=== PATIENT | female | born 1925 | race Caucasian/White ===

== ENCOUNTER 2017-03-22 13:34 | Inpatient (IN) | payer MEDICARE ==
[2017-03-22] MEDS ORDERED: Sodium Chloride 0.9% 10 ML Syringe FLUSH PRN (14:50)
[2017-03-22] MEDS ORDERED: Albuterol/Ipratropium 3.0-0.5 MG/3 ML Neb Soln NEB PRN (14:50)
[2017-03-22] MEDS ORDERED: HYDROmorphone 1 MG/ML Syringe IVPUSH PRN (14:50)
[2017-03-22] MEDS ORDERED: Ondansetron 4 MG/2 ML SDV IV PRN (14:50)
[2017-03-22] MEDS ORDERED: Take Home: Albuterol 6.7 GM Inhaler, 1 Inhaler Pack INH PRN (15:02)
[2017-03-22] MEDS ORDERED: Ondansetron 4 MG Tab.DIS PO PRN (15:02)
[2017-03-22] MEDS ORDERED: Bisacodyl 10 MG Supp RECTAL PRN ×3 (15:02→16:00)
[2017-03-22] MEDS ORDERED: FLUOCINONIDE TOP PRN ×2 (15:02)
[2017-03-22] MEDS ORDERED: Dextran 70/Hypromellose/PF Ophth Soln 0.9 ML UD EYEBOTH PRN (15:02)
--- NOTE | 2017-03-22 15:14 | PCM.HP ---
"H&P History of Present Illness - General Date of Service: 03/22/17 Admit Problem/Dx: Admission Diagnosis/Problem Admission Diagnosis/Problem Pneumonia Source of Information: Patient, Jail Records - History of Present Illness Initial Comments - Free Text/Narative: HPI Comments:~FEver, dyspnea, cough - past 24 hours at [facility]. ~No chest pain. ~Probably exposed to some flu. ~Receiv flu shot. ~Receive Tamiflu prophylaxis 1 or two doses. Fever~~ Associated symptoms include coughing. Pertinent negatives include no chest pain~ or vomiting. Other~ Associated symptoms include coughing~and a fever. Pertinent negatives include no chest pain~or vomiting. Pallor~ Associated symptoms include coughing~and a fever. Pertinent negatives include no chest pain~or vomiting. Medications MedicationsPriortoVisit Outpatient Medications Prior to Visit Medication Sig Dispense Refill traMADol (ULTRAM) 50 mg tablet Take 1 tablet (50 mg) by mouth 2 times a day TAKE 1 TABLET BY MOUTH 3 TIMES DAILY 60 tablet 5 furosemide (LASIX) 20 mg tablet Take 2 tablets (40 mg) by mouth 2 times a day 120 tablet 11 ketoconazole (NIZORAL) 2% shampoo APPLY TO DAMP SCALP, LEAVE ON LONG POSSIBLE BEFORE SHAMPOOING OUT, USE DAILY 120 mL 11 mirtazapine (REMERON) 15 mg tablet Take 15 mg by mouth 1 time per day omega-3 fatty acids (FISH OIL) 1000 mg capsule Take 1,000 mg by mouth 1 time per day Sennosides-Docusate Sodium (SENNA PLUS PO) Take by mouth 2 times a day bisacodyl (DULCOLAX) 10 mg suppository 10 mg calcium ascorbate 500 MG TABS 500 mg predniSONE 5 mg tablet TAKE 1 TABLET BY MOUTH ONE TIME A DAY WITH 1MG TABLET 14 tablet 11 warfarin (COUMADIN) 5 mg tablet [facility] Anticoagulation Pt:Take as directed. (Insurance Purposes: 2.5-5 mg daily dose range) Call [phone] if questions. 90 tablet 3 potassium chloride (K-OMAR) 20 MEQ packet Take 1 packet (20 mEq total) by mouth 3 times a day Dissolve in 4 to 8 ounces of water or juice. (Patient taking differently: Take 20 mEq by mouth 1 time per day Dissolve in 4 to 8 ounces of water or juice. ) 90 packet 3 Phytonadione, vitamin K, 100 MCG TABS tablet Take 1 tablet (100 micrograms) by mouth once daily while on warfarin to stabilize labile INRs and dietary vitamin K consumption. 100 tablet 3 aspirin 81 mg chewable tablet Take 1 tablet (81 mg total) by mouth 1 time per day 30 tablet 1 atorvaSTATin (LIPITOR) 40 mg tablet Take 1 tablet (40 mg total) by mouth 1 time per day 30 tablet 1 acetaminophen (TYLENOL) 500 mg tablet Take 1 tablet (500 mg total) by mouth Every 4 hours as needed for mild pain or fever > (indicate temp) (Temp >100.0) 30 tablet 1 albuterol HFA (PROAIR HFA) 108 (90 BASE) MCG/ACT inhaler Inhale 1 puff orally every 4 to 6 hours as needed for shortness of breath Shake well before using. 1 Inhaler 0 venlafaxine (EFFEXOR) 75 mg tablet Take 1 tablet (75 mg total) by mouth 2 times a day 30 tablet 1 ondansetron (ZOFRAN) 4 mg tablet Take 1 tablet (4 mg total) by mouth every 6 hours as needed for nausea (if nausea does not improve in one hour may take a second tablet) 60 tablet 1 carVEDilol (COREG) 6.25 mg tablet Take 1 tablet (6.25 mg total) by mouth 2 times a day with meals 60 tablet 1 fluocinonide (LIDEX) 0.05 % SOLN Apply once or twice daily to affected scalp as needed for itching and rash 60 mL 11 pyrithione zinc (SELSUN BLUE DRY SCALP) 1 % SHAM Shampoo hair with Selsun Blue 2 times a week for 2 week, then once weekly thereafter. 118 mL 0 melatonin 3 mg tablet Take 1 tablet (3 mg total) by mouth every night at bedtime 30 tablet 1 multivitamin/lutein (PROSIGHT;OCUVITE-LUTEIN) capsule Take 1 capsule by mouth 1 time per day 30 capsule 1 brimonidine 0.2 % SOLN Place 1 drop into both eyes 2 times a day 10 mL 11 polyethyl glycol-propyl glycol (SYSTANE) 0.4-0.3 % SOLN Place 1 drop into both eyes Every 4 hours as needed for dry eyes 10 mL 0 omeprazole (PRILOSEC) 20 mg capsule Take 1 capsule (20 mg total) by mouth 1 time a day in the morning 30 capsule 1 vitamin C, ascorbic acid, 500 MG tablet Take 1 tablet (500 mg total) by mouth 2 times a day 60 tablet 1 predniSONE 20 mg tablet 2 today then 1 Once Daily x 7d 9 tablet 0 No facility-administered medications prior to visit. Allergies Allergies Allergen Reactions Hayfever [Hay Fever] Wheezing/Bronchospasm (High) Ceftin [Cefuroxime] Unknown/Not Verified Ciprofloxacin Unknown/Not Verified Codeine Unknown/Not Verified Shellfish-Derived Products Unknown/Not Verified Problem List Patient Active Problem List Diagnosis Pneumonia of right middle lobe due to infectious organism admit 02/01 has aspiration on swallow eval Decubitus ulcer of coccyx Inflammatory arthritis spring after CVA E. coli UTI After stroke 07/02 tx with Macrobid, e.coli again in 09/01 resistant to bactrim later got cipro Long-term (current) use of anticoagulants Acute right arterial ischemic stroke, MCA (middle cerebral artery) S/p thrombectomy 06/29/15 with significant residual left sided paralysis especially in her arm Seborrheic dermatitis of scalp Derm 11/30 had milia then also on Lidex Glaucoma Pseudophakos Presbyopia Bradycardia On carvedelol with amitriptylene., Hypertension, essential, benign Hypercholesterolemia Chronic atrial fibrillation Onset about 2009 on coumadin until 2012, when having ischemic colitis and some cognitive decline. No cardioversion. ~Remote hx of TIA, CVA in 07/02 restarted coumadin Cognitive dysfunction 07/14/13 MMSE 26/30. Has depression also. ~She was 21/30 when admitted for a concussion her CPT was 3.1 Depression Was on amitriptylene in [place], In 2013 taper off in and start zoloft. Also has dementia. ~Trial of effexor in 11/30 and plan to taper down on Zoloft also.. ~Effexor increased in 05/04 to 75 mg twice daily Osteoporosis, senile Was on fosamax , temporarily stopped in 2012 and later held in 11/30 due to muscle aches Ischemic colitis Colonoscopy Jan 2012 in [place]. Breast cancer Surgery in 1998 Right. And had elective mastectomy on other side. CHF (congestive heart failure) Apr 2012, ischemic cardiomyopathy ~25%, on coreg. Jun 2015 echo shows 55% EF, mild aortic regurg, moderate mitral valve regurg. Admit 02/01 with aspiration pneumonia also GERD (gastroesophageal reflux disease) EGD Jan 2012.Prilosec Degenerative joint disease of knee Diverticulosis TIA (transient ischemic attack) Colon polyp Colon polyps in past, [place] , 2001,2002,2006,,07/19/2011 Medical/Surgical/Family/Social PastMedicalHistory Past Medical History: Diagnosis Date Atrial fibrillation Onset about 2009 on coumadin until 2012, when having ischemic colitis and some cognitive decline. No cardioversion. Bradycardia 07/14/2013 On carvedelol with amitriptylene., ~ Breast cancer Surgery in 1998 Right. And had elective mastectomy on other side. CHF (congestive heart failure) Apr 2012, ischemic cardiomyopathy ~25%, on coreg Cognitive dysfunction Cognitive dysfunction 07/14/13 MMSE . Has depression also. Colon polyp 07/19/2011 Colon polyps in past, [place] , 2001,2002,2006,,07/19/2011 Degenerative joint disease of knee Depression Was on amitriptylene in [place], In 2013 taper off in and start zoloft. Also had dementia. Diverticulosis GERD (gastroesophageal reflux disease) EGD Jan 2012.Prilosec Hypercholesterolemia Hypertension, essential, benign Ischemic colitis Colonoscopy Jan 2012 in [place]. Osteoporosis, senile Was on fosamax , temporarily stopped in 2012. ~ Psychotherapy and other treatment for mental disorder follow-up examination Skin lesion of scalp 07/14/2013 TIA (transient ischemic attack) PastSurgicalHistory Past Surgical History: Procedure Laterality Date APPENDECTOMY BIOPSY LUNG BREAST SURGERY Bilateral 1998 one side cancer, other side prophylactic CATARACT EXTRACTION Bilateral TONSILLECTOMY & ADENOIDECTOMY < AGE 14 FamilyHistory Family History Problem Relation Age of Onset Heart Mother Cataracts Mother Heart Disease Mother Cancer (not otherwise listed) Father leukemia Heart Brother Heart Disease Brother Heart Brother [place] Heart Disease Brother Cancer (not otherwise listed) Brother Negative Brother Blindness Neg Hx Glaucoma Neg Hx Macular Degeneration Neg Hx Retinal Detachment Neg Hx SocialHistory Social History Social History Marital status: Spouse name: N/A Number of children: N/A Years of education: N/A Occupational History retired Social History Main Topics Smoking status: Former Smoker Smokeless tobacco: Never Used Alcohol use No Drug use: No Sexual activity: Not on file Other Topics Concern Not on file Social History Narrative From [place], 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 Son is retired ENT physician from [place], move to [place] in 2013. Daughter, Katalina, in primary caregiver. 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 Tob rare, stopped at 42 y/o. EtOH occasionally. ROS Review of Systems Constitutional: Positive for fever. Respiratory: Positive for cough~and shortness of breath. ~ Cardiovascular: Negative for chest pain. Gastrointestinal: Negative for vomiting. Physical / Results BP 106/62 ~Pulse 82 ~Temp 99.5 F (37.5 C) (Tympanic) ~SpO2 87%|| Physical Exam~ Constitutional: She appears well-developed~and well-nourished. No distress. HENT: Mouth/Throat: Oropharynx is clear and moist. Cardiovascular: Normal rate, regular rhythm~and normal heart sounds. ~ Pulmonary/Chest: Effort normal. She has wheezes. She has rales. Some mild B wheeze, rhonchi, rale~ Abdominal: Soft. Musculoskeletal: She exhibits edema. She exhibits no tenderness. Skin: She is not diaphoretic. Assessment / Plan Problem List Items Addressed This Visit~ None Visit Diagnoses~ SOB (shortness of breath)~~~~- ~Primary Relevant Medications albuterol-ipratropium (DUO-NEB) 2.5-0.5 mg/3 mL inhalation solution 3 mL Other Relevant Orders COMPLETE BLOOD COUNT WITH DIFFERENTIAL COMPREHENSIVE METABOLIC PANEL C-REACTIVE PROTEIN (INFLAMMATION) INFLUENZA A AND B NUCLEIC ACID DETECTION XRAY CHEST PA AND LATERAL Plan: Fever, cough, hypoxia CXR looks mostly unchanged, hard to read expiratory film in wheelchair pt, PNA would still be most likely dx Admit for O2, nebs, rocephin + azith, double prednisone x at least 3d Will do tamiflu more in the prophylactic qd~dose, I doubt one or two doses would make her PCR falsely neg today Appears euvolemic Hold on IVF for now given CHF hx Already on warfarn for afib which will cover DVT prophylaxis INR in AM Last ESR 82 Localized arthritis often PMR equivalent at this age DNR per DC chart Outpatient Medications Prior to Visit Medication Sig Dispense Refill traMADol (ULTRAM) 50 mg tablet Take 1 tablet (50 mg) by mouth 2 times a day TAKE 1 TABLET BY MOUTH 3 TIMES DAILY 60 tablet 5 furosemide (LASIX) 20 mg tablet Take 2 tablets (40 mg) by mouth 2 times a day 120 tablet 11 ketocnazole (NIZORAL) 2% shampoo APPLY TO DAMP SCALP, LEAVE ON LONG POSSIBLE BEFORE SHAMPOOING OUT, USE DAILY 120 mL 11 mirtazapine (REMERON) 15 mg tablet Take 15 mg by mouth 1 time per day omega-3 fatty acids (FISH OIL) 1000 mg capsule Take 1,000 mg by mouth 1 time per day Sennosides-Docusate Sodium (SENNA PLUS PO) Take by mouth 2 times a day bisacodyl (DULCOLAX) 10 mg suppository 10 mg calcium ascorbate 500 MG TABS 500 mg predniSONE 5 mg tablet TAKE 1 TABLET BY MOUTH ONE TIME A DAY WITH 1MG TABLET 14 tablet 11 warfarin (COUMADIN) 5 mg tablet [facility] Anticoagulation Pt:Take as directed. (Insurance Purposes: 2.5-5 mg daily dose range) Call [phone] if questions. 90 tablet 3 potassium chloride (K-OMAR) 20 MEQ packet Take 1 packet (20 mEq total) by mouth 3 times a day Dissolve in 4 to 8 ounces of water or juice. (Patient taking differently: Take 20 mEq by mouth 1 time per day Dissolve in 4 to 8 ounces of water or juice. ) 90 packet 3 Phytonadione, vitamin K, 100 MCG TABS tablet Take 1 tablet (100 micrograms) by mouth once daily while on warfarin to stabilize labile INRs and dietary vitamin K consumption. 100 tablet 3 aspirin 81 mg chewable tablet Take 1 tablet (81 mg total) by mouth 1 time per day 30 tablet 1 atorvaSTATin (LIPITOR) 40 mg tablet Take 1 tablet (40 mg total) by mouth 1 time per day 30 tablet 1 acetaminophen (TYLENOL) 500 mg tablet Take 1 tablet (500 mg total) by mouth Every 4 hours as needed for mild pain or fever > (indicate temp) (Temp >100.0) 30 tablet 1 albuterol HFA (PROAIR HFA) 108 (90 BASE) MCG/ACT inhaler Inhale 1 puff orally every 4 to 6 hours as needed for shortness of breath Shake well before using. 1 Inhaler 0 venlafaxine (EFFEXOR) 75 mg tablet Take 1 tablet (75 mg total) by mouth 2 times a day 30 tablet 1 ondansetron (ZOFRAN) 4 mg tablet Take 1 tablet (4 mg total) by mouth every 6 hours as needed for nausea (if nausea does not improve in one hour may take a second tablet) 60 tablet 1 carVEDilol (COREG) 6.25 mg tablet Take 1 tablet (6.25 mg total) by mouth 2 times a day with meals 60 tablet 1 fluocinonide (LIDEX) 0.05 % SOLN Apply once or twice daily to affected scalp as needed for itching and rash 60 mL 11 pyrithione zinc (SELSUN BLUE DRY SCALP) 1 % SHAM Shampoo hair with Selsun Blue 2 times a week for 2 week, then once weekly thereafter. 118 mL 0 melatonin 3 mg tablet Take 1 tablet (3 mg total) by mouth every night at bedtime 30 tablet 1 multivitamin/lutein (PROSIGHT;OCUVITE-LUTEIN) capsule Take 1 capsule by mouth 1 time per day 30 capsule 1 brimonidine 0.2 % SOLN Place 1 drop into both eyes 2 times a day 10 mL 11 polyethyl glycol-propyl glycol (SYSTANE) 0.4-0.3 % SOLN Place 1 drop into both eyes Every 4 hours as needed for dry eyes 10 mL 0 omeprazole (PRILOSEC) 20 mg capsule Take 1 capsule (20 mg total) by mouth 1 time a day in the morning 30 capsule 1 vitamin C, ascorbic acid, 500 MG tablet Take 1 tablet (500 mg total) by mouth 2 times a day 60 tablet 1 predniSONE 20 mg tablet 2 today then 1 Once Daily x 7d 9 tablet 0 No facility-administered medications prior to visit. - Related Data Allergies/Adverse Reactions: Allergies Allergy/AdvReac Type Severity Reaction Status Date / Time cefuroxime axetil Allergy Cannot Verified 02/14/16 09:15 [From Ceftin] Remember ciprofloxacin [From Cipro] Allergy Cannot Verified 02/14/16 09:15 Remember codeine Allergy Cannot Verified 02/14/16 09:15 Remember shellfish derived Allergy Cannot Verified 02/14/16 09:15 Remember hayfever Allergy Cannot Uncoded 02/13/16 00:43 Remember shell Allergy Cannot Uncoded 02/13/16 00:43 Remember Home Medications: Home Meds Albuterol [Proair HFA] 1 puff IH Q6H PRN 07/21/14 [History] Carvedilol [Coreg] 6.25 mg PO BID 07/21/14 [History] Omeprazole 20 mg PO DAILY 07/21/14 [History] Aspirin 81 mg PO DAILY 07/06/15 [History] Fluocinonide 1 applic TOP BID PRN 07/06/15 [History] Ketoconazole [Nizoral 2% Shampoo] 1 applic TOP ASDIRECTED 07/06/15 [History] Melatonin 3 mg PO BEDTIME 07/06/15 [History] Triamcinolone Acetonide [Triamcinolone Acetonide 0.1% Crm] 1 applic TOP BID [History] atorvaSTATin [Lipitor] 40 mg PO BEDTIME 07/06/15 [History] Venlafaxine [Effexor] 75 mg PO BID 07/07/15 [History] Docusate Sodium/Sennosides [Senna Plus] 1 tab PO BID #60 tablet 07/22/15 [Rx] Phytonadione [Vitamin K] 100 mcg PO DAILY 02/13/16 [History] Potassium Chloride [Klor-Con M20] 20 meq PO DAILY 02/13/16 [History] predniSONE [Prednisone] 5 mg PO DAILY 02/13/16 [History] traMADol [Ultram] 50 mg PO TID 02/13/16 [History] Acetaminophen [Tylenol] 650 mg PO Q4H PRN 02/14/16 [History] Bisacodyl [Dulcolax] 5 mg PO Q3D PRN 02/14/16 [History] Brimonidine Tartrate [Brimonidine Tartrate 0.2% Ophth Soln] 1 drop EYEBOTH BID 02/14/16 [History] Fish Oil/[place]-3 Fatty Acids [Fish Oil 1,000 MG] 1 each PO DAILY 02/14/16 [ History] Methyl Salicylate/Menthol [Icy Hot] 1 applic TOP BID 02/14/16 [History] Mirtazapine [Remeron] 15 mg PO BEDTIME 02/14/16 [History] Multivitamin [Multivitamins] 1 each PO DAILY 02/14/16 [History] Ondansetron [Zofran ODT] 4 mg PO Q6H PRN 11/28/16 [History] Warfarin [Coumadin] 5 mg PO MO@199902/14/16 [History] Warfarin [Coumadin] 7.5 mg PO SUTUWETHFRSA@199902/14/16 [History] Doxycycline Calcium [IMW: Doxycycline] 100 mg PO BID #11 capsule 02/18/16 [Rx] Ascorbate Calcium [Calcium Ascorbate] 03/22/17 [History] Ascorbate Calcium [Vitamin C] 03/22/17 [History] Bisacodyl 10 mg RC PRN 03/22/17 [History] Fluocinonide [Lidex 0.05% Crm] 15 gm TOP BID PRN 03/22/17 [History] Furosemide 2 tab PO BID 03/22/17 [History] Omeprazole 1 cap PO DAILY 03/22/17 [History] Polyethylene Glycol/Polyvinyl [Hypotears Eye Drops] 1 drop EYEBOTH Q4H PRN 03/22 [History] Past Medical History HEENT History: Reports: Cataract Cardiovascular History: Reports: Afib, Heart Failure, High Cholesterol, Hypertension Gastrointestinal History: Reports: Colon Polyp, Diverticulosis 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: Musculoskeletal History: Reports: Arthritis Neurological History: Reports: CVA, TIA Psychiatric History: Reports: Dementia Oncologic (Cancer) History: Reports: Breast Dermatologic History: Reports: Psoriasis - Past Surgical History HEENT Surgical History: Reports: Adenoidectomy, Cataract Surgery, Tonsillectomy Female Surgical History: Reports: Breast Biopsy, Hysterectomy Neurological Surgical History: Reports: Other (See Below) Social & Family History - Tobacco Use Smoking Status *Q: Never Smoker - Alcohol Use Days Per Week of Alcohol Use: 0 - Recreational Drug Use Recreational Drug Use: No H&P Review of Systems - Review of Systems: Review Of Systems: See Below Exam - Exam Exam: See Below - Vital Signs Weight: 76.839 kg *Q Meaningful Use (ADM) - VTE *Q VTE Criteria *Q: - Stroke *Q Stroke Criteria *Q: - AMI *Q AMI Criteria *Q: Problem List Initiated/Reviewed/Updated: Yes Orders Last 24hrs: Active Orders 24 hr Category Date Time Status Admission Status [Patient Status] [ADT] Routine ADT 03/22/17 13:38 Active Patient Status [ADT] Routine ADT 03/22/17 14:50 Ordered Oxygen Therapy [RC] PRN Care 03/22/17 14:50 Ordered RT Aerosol Therapy [RC] ASDIRECTED Care 03/22/17 14:53 Ordered Up With Assistance [RC] ASDIRECTED Care 03/22/17 14:50 Ordered VTE/DVT Education [RC] PER UNIT ROUTINE Care 03/22/17 14:50 Ordered Vital Signs [RC] Q4H Care 03/22/17 14:50 Ordered Regular Diet [DIET] Diet 03/22/17 Dinner Ordered BASIC METABOLIC PANEL,BMP [CHEM] AM Lab 03/23/17 05:11 Ordered CBC WITH AUTO DIFF [HEME] AM Lab 03/23/17 05:11 Ordered CRP [C-REACTIVE PROTEIN] [CHEM] AM Lab 03/23/17 05:11 Ordered CULTURE MRSA SURVEY [RM] Routine Lab 03/22/17 13:54 Received INR,PT,PROTHROMBIN TIME [COAG] AM Lab 03/23/17 05:11 Ordered Acetaminophen [Tylenol] Med 03/22/17 14:50 Ordered 650 mg PO Q4H PRN Acetaminophen [Tylenol] Med 03/22/17 15:02 Ordered 650 mg PO Q4H PRN Albuterol [Take Home: Albuterol 6.7 GM, 1 INH Pack] Med 03/22/17 15:02 Ordered 1 puff INH Q6H PRN Albuterol/Ipratropium [DuoNeb 3.0-0.5 MG/3 ML] Med 03/22/17 14:50 Ordered 3 ml NEB Q4H PRN Ascorbate Calcium [Calcium Ascorbate] Med 03/22/17 15:15 Unverified DOSE UNIT RTE FREQ Ascorbate Calcium [Vitamin C] Med 03/22/17 15:15 Unverified DOSE UNIT RTE FREQ Aspirin Med 03/23/17 08:00 Ordered 81 mg PO DAILY Azithromycin [Zithromax] 500 mg Med 03/22/17 15:15 Ordered Sodium Chloride 0.9% [Normal Saline] 250 ml IV DAILY Bisacodyl [Dulcolax] Med 03/22/17 15:02 Ordered 5 mg PO Q3D PRN Bisacodyl [Dulcolax] Med 03/22/17 15:02 Unverified DOSE UNIT RTE FREQ PRN Brimonidine [Alphagan 0.2% Ophth Soln] Med 03/22/17 20:00 Ordered 1 drop EYEBOTH BID Carvedilol [Coreg] Med 03/22/17 20:00 Ordered 6.25 mg PO BID Docusate Sodium/Sennosides [Senna Plus] Med 03/22/17 20:00 Ordered 1 tab PO BID Fish Oil/[place]-3 Fatty Acids [Fish Oil] Med 03/23/17 08:00 Ordered 1 each PO DAILY Fluocinonide [Fluocinonide] Med 03/22/17 15:02 Ordered 1 applic TOP BID PRN Fluocinonide [Lidex 0.05% Crm] Med 03/22/17 15:02 Ordered 15 gm TOP BID PRN Furosemide [Lasix] Med 03/22/17 20:00 Ordered 2 tab PO BID HYDROmorphone [Dilaudid] Med 03/22/17 14:50 Ordered 0.25 mg IVPUSH Q2H PRN Ketoconazole [Nizoral 2% Shampoo] Med 03/22/17 15:15 Ordered 1 applic TOP ASDIRECTED Melatonin Med 03/22/17 20:00 Ordered 3 mg PO BEDTIME Menthol/Methyl Salicylate [Icy Hot Cream] Med 03/22/17 20:00 Ordered 1 applic TOP BID Mirtazapine [Remeron] Med 03/22/17 20:00 Ordered 15 mg PO BEDTIME Multivitamin [Multivitamins] Med 03/23/17 08:00 Ordered 1 each PO DAILY Omeprazole Med 03/23/17 08:00 Ordered 1 cap PO DAILY Omeprazole Med 03/23/17 08:00 Ordered 20 mg PO DAILY Ondansetron [Zofran ODT] Med 03/22/17 15:02 Ordered 4 mg PO Q6H PRN Ondansetron [Zofran] Med 03/22/17 14:50 Ordered 4 mg IV Q6H PRN Phytonadione [Vitamin K] Med 03/23/17 08:00 Ordered 100 mcg PO DAILY Polyethylene Glycol/Polyvinyl [Hypotears Eye Drops] Med 03/22/17 15:02 Ordered 1 drop EYEBOTH Q4H PRN Potassium Chloride [Klor-Con M20] Med 03/23/17 08:00 Ordered 20 meq PO DAILY Sodium Chloride 0.9% [Saline Flush] Med 03/22/17 14:50 Ordered 10 ml FLUSH ASDIRECTED PRN Triamcinolone Acetonide [Triamcinolone Acetonide 0.1% Med 03/22/17 20:00 Ordered Crm] 1 applic TOP BID Venlafaxine [Effexor] Med 03/22/17 20:00 Ordered 75 mg PO BID Warfarin Med 03/22/17 20:00 Ordered 7.5 mg PO SUTUWETHFRSA@1999 Warfarin [Coumadin] Med 03/26/17 20:00 Ordered 5 mg PO MO@1999 atorvaSTATin [Lipitor] Med 03/22/17 20:00 Ordered 40 mg PO BEDTIME cefTRIAXone [Rocephin] Med 03/22/17 15:15 Ordered 1 gm IVPUSH DAILY traMADol [Ultram] Med 03/22/17 20:00 Ordered 50 mg PO TID Peripheral IV Insertion Adult [OM.PC] Routine Oth 03/22/17 14:50 Ordered Resuscitation Status Routine Resus Stat 03/22/17 14:50 Ordered Medication Orders Acetaminophen (Tylenol) 650 mg PO Q4H PRN PRN Reason: Pain (Mild 1-3)/fever Acetaminophen (Tylenol) 650 mg PO Q4H PRN PRN Reason: Pain Albuterol (Take Home: Albuterol 6.7 Gm, 1 Inh Pack) packet INH Q6H PRN PRN Reason: Shortness of Breath Albuterol/Ipratropium (Duoneb 3.0-0.5 Mg/3 Ml) 3 ml NEB Q4H PRN PRN Reason: dyspnea/wheezing Aspirin (Aspirin) 81 mg PO DAILY LENNIE Atorvastatin Calcium (Lipitor) 40 mg PO BEDTIME LENNIE Bisacodyl (Dulcolax) 5 mg PO Q3D PRN PRN Reason: Constipation Brimonidine Tartrate (Alphagan 0.2% Ophth Soln) ml EYEBOTH BID LENNIE Carvedilol (Coreg) 6.25 mg PO BID LENNIE Fish Oil (Fish Oil) gm PO DAILY LENNIE Furosemide (Lasix) mg PO BID LENNIE Hydromorphone HCl (Dilaudid) 0.25 mg IVPUSH Q2H PRN PRN Reason: Pain (severe 7-10) Melatonin (Melatonin) 3 mg PO BEDTIME LENNIE Methyl Salicylate (Icy Hot Cream) gm TOP BID LENNIE Mirtazapine (Remeron) 15 mg PO BEDTIME LENNIE Non-Formulary Medication (Fluocinonide [Fluocinonide]) 1 applic TOP BID PRN PRN Reason: itching or rash to scalp Non-Formulary Medication (Fluocinonide [Lidex 0.05% Crm]) 15 gm TOP BID PRN PRN Reason: Itching Non-Formulary Medication (Ketoconazole [Nizoral 2% Shampoo]) 1 applic TOP ASDIRECTED [facility] Non-Formulary Medication (Multivitamin [Multivitamins]) 1 each PO DAILY [facility] Non-Formulary Medication (Polyethylene Glycol/Polyvinyl [Hypotears Eye Drops]) 1 drop EYEBOTH Q4H PRN PRN Reason: Dry Eyes Non-Formulary Medication (Venlafaxine [Effexor]) 75 mg PO BID [facility] Non-Formulary Medication (Warfarin) 7.5 mg PO SUTUWETHFRSA@1999 [facility] Omeprazole (Omeprazole) mg PO DAILY [facility] Omeprazole (Omeprazole) 20 mg PO DAILY [facility] Ondansetron HCl (Zofran) 4 mg IV Q6H PRN PRN Reason: Nausea/Vomiting Ondansetron HCl (Zofran Odt) 4 mg PO Q6H PRN PRN Reason: Nausea Phytonadione (Vitamin K) 100 mcg PO DAILY [facility] Potassium Chloride (Klor-Con M20) 20 meq PO DAILY [facility] Senna/Docusate Sodium (Senna Plus) 1 tab PO BID [facility] Sodium Chloride (Saline Flush) 10 ml FLUSH ASDIRECTED PRN PRN Reason: Keep Vein Open Tramadol HCl (Ultram) 50 mg PO TID [facility] Triamcinolone Acetonide (Triamcinolone Acetonide 0.1% Crm) gm TOP BID [facility] Warfarin Sodium (Coumadin) 5 mg PO MO@1999 [facility] Assessment/Plan Comment:: Fever, cough, hypoxia CXR looks mostly unchanged, hard to read expiratory film in wheelchair pt, PNA would still be most likely dx Admit for O2, nebs, rocephin + azith, double prednisone x at least 3d Will do tamiflu more in the prophylactic qd~dose, I doubt one or two doses would make her PCR falsely neg today Appears euvolemic Hold on IVF for now given CHF hx Already on warfarn for afib which will cover DVT prophylaxis INR in AM Last ESR 82 Localized arthritis often PMR equivalent at this age DNR per DC chart"
[2017-03-22] MEDS ORDERED: KETOCONAZOLE TOP SCH (15:15)
[2017-03-22] MEDS ORDERED: Albuterol 0.083% 2.5 MG/3 ML Neb Soln NEB PRN (15:36)
[2017-03-22] MEDS: Furosemide 40 MG Tab PO SCH (16:38)
[2017-03-22] MEDS: Oseltamivir 75 MG Cap PO SCH (16:38)
[2017-03-22] MEDS: cefTRIAXone 1 GM Vial IVPUSH SCH (16:38)
[2017-03-22] MEDS: predniSONE 10 MG Tab PO SCH (16:38)
[2017-03-22] MEDS: Azithromycin 500 MG in Sodium Chloride 0.9% 250 ML IV SCH (16:39)
[2017-03-22] MEDS: Mirtazapine 15 MG Tab PO SCH (19:48)
[2017-03-22] MEDS: Brimonidine 0.2% Ophth Soln 5 ML Bottle EYEBOTH SCH (19:48)
[2017-03-22] MEDS: Melatonin 3 MG Tab PO SCH (19:48)
[2017-03-22] MEDS: atorvaSTATin 40 MG Tab PO SCH (19:48)
[2017-03-22] MEDS: Ascorbic Acid 500 MG Tab PO SCH (19:49)
[2017-03-22] MEDS: traMADol 50 MG Tab PO SCH (19:49)
[2017-03-22] MEDS: Venlafaxine 37.5 MG Tab PO SCH (19:49)
[2017-03-22] MEDS: Carvedilol 6.25 MG Tab PO SCH (19:49)
[2017-03-22] MEDS ORDERED: Menthol/Methyl Salicylate 85 GM Tube TOP SCH (20:00)
[2017-03-22] MEDS ORDERED: Triamcinolone Acetonide 0.1% Crm 15 GM Tube TOP SCH (20:00)
[2017-03-22] MEDS ORDERED: Warfarin 5 MG Tab PO SCH (20:00)
[2017-03-23] MEDS: Omeprazole 20 MG Cap.CR PO SCH ×2 (05:24→06:04)
[2017-03-23 07:31] LABS: CHLORIDE,CL 103 mmol/L (98-107); SODIUM,NA 143 mmol/L (136-145)
[2017-03-23] MEDS ORDERED: Potassium Chloride 20 MEQ Packet PO SCH (08:00)
[2017-03-23] MEDS ORDERED: Enoxaparin 40 MG/0.4 ML Syringe SUBCUT SCH (08:00)
[2017-03-23] MEDS ORDERED: Omeprazole 20 MG Cap.CR PO SCH (08:00)
[2017-03-23] MEDS: Beta-Carotene (Vitamin A) w/Vitamin C & E plus Minerals Tab PO SCH (09:30)
[2017-03-23] MEDS: Ascorbic Acid 500 MG Tab PO SCH ×2 (09:30→20:39)
[2017-03-23] MEDS: Brimonidine 0.2% Ophth Soln 5 ML Bottle EYEBOTH SCH ×2 (09:30→20:40)
[2017-03-23] MEDS: Carvedilol 6.25 MG Tab PO SCH ×2 (09:30→20:40)
[2017-03-23] MEDS: Fish Oil/Omega-3 Fatty Acids 1 Gm Cap PO SCH (09:30)
[2017-03-23] MEDS: Furosemide 40 MG Tab PO SCH ×2 (09:31→15:55)
[2017-03-23] MEDS: traMADol 50 MG Tab PO SCH ×2 (09:31→20:39)
[2017-03-23] MEDS: Venlafaxine 37.5 MG Tab PO SCH ×2 (09:31→20:40)
[2017-03-23] MEDS: Phytonadione 100 MCG Tab PO SCH (09:31)
[2017-03-23] MEDS: Oseltamivir 75 MG Cap PO SCH (09:31)
[2017-03-23] MEDS: Aspirin 81 MG Tab.EC PO SCH (09:31)
[2017-03-23] MEDS: predniSONE 10 MG Tab PO SCH (09:32)
--- NOTE | 2017-03-23 11:26 | PN ---
Progress Note for ABDON COYLE Date: 03/23/2017 Room #: VM.203 SUBJECTIVE: Hospital day #2 on an 89-year-old admitted with cough, weakness, shortness of breath, and fever. Suspected to have influenza, but did test negative. Chest x-ray from the clinic was suggestive of a mild infiltrate over the right mid lung. She denies having any trouble with coughing while eating, but does have a history of stroke with left hemiplegia. She otherwise has been afebrile since her admission to [facility], did have a temperature of 99.5 in the clinic. Saturations were low at 88% on admission, but she has been saturating above 90% now on 2.5 L. She is denying any pain anywhere. She does have her left knee wrapped up, but she denies that it is sore. She has had inflammatory arthritis and has been on prednisone 5 mg daily long-term. She did not eat any breakfast yet this morning. OBJECTIVE: Vital Signs: Her temperature is 97.6, pulse 85, blood pressure 128/62, respiratory rate 20, and O2 of 93 on 2.5 L. General: She is in no acute distress. Heart: Irregularly irregular. Respiratory: Lung sounds show some decreased air entry with rhonchi over the right mid lung. Abdomen: Positive bowel sounds. It is soft and nontender. Extremities: Warm and dry. No edema. Mental Status: She is alert. She is not sure of her location. She thinks she is in [place]. She tells me she does recognize me, but she does not use my name. LABORATORY DATA: Lab work today did show her white count to be improved to 10.4, hemoglobin 10.6, and platelets 202. INR up to 5.9. Sodium 143, potassium 3.4, chloride 103, bicarbonate 32, BUN 15, creatinine 0.7, and calcium 8.6. CRP is 17.3; yesterday, through the clinic, it was 109.4. White count was 11.5 yesterday. ASSESSMENT: 1. Fever, dyspnea, and cough for now 48 hours, seems to be improving. She will continue with Tamiflu. 2. Probable pneumonia based on significantly elevated CRP, white count, and symptoms. Could all be related to influenza, but given her negative flu test, I am going to continue her on the antibiotics of Zithromax and Rocephin. Even though cephalosporins have been listed as an allergy, she seems to be tolerating it. No indication to escalate antibiotics. No methicillin-resistant Staphylococcus aureus was isolated on her culture due to her shelter status. 3. Acute hypoxic respiratory failure secondary to pneumonia. We will continue to wean oxygen. 4. History of stroke with underlying atrial fibrillation. 5. Supratherapeutic INR. I am going to hold Coumadin. We will repeat her INR tomorrow. 6. Chronic congestive heart failure, seems to be stable. She is not getting IV fluids. We will continue to monitor. 7. Essential hypertension. 8. Moderate depression. 9. Cognitive dysfunction. 10.Inflammatory arthritis. 11.History of right middle cerebral artery stroke. PLAN: At this point, the patient will continue on acute care. She is on an increased dose of prednisone 10 mg daily. Blood pressures have been stable. We will continue the IV Rocephin and oral Zithromax. We will encourage better oral intake before switching over to oral antibiotics. We will continue to wean oxygen. She has no history of chronic lung disease. At this point, she is getting scheduled nebulizers. We will continue with the same, but change coordinator to p.r.n. once she is breathing better. I anticipate that she will be stable for discharge in another day or two. We will have to work with the shelter regarding transfer back there. Her daughter was also updated, but she is still receiving acute treatments and is not stable for discharge today. For DVT prophylaxis, she is therapeutic on her INR. MKA: 03/23/2017 10:45:18 MODL: 03/23/2017 11:18:42 /[id number]
[2017-03-23] MEDS: cefTRIAXone 1 GM Vial IVPUSH SCH (15:54)
[2017-03-23] MEDS: Azithromycin 500 MG in Sodium Chloride 0.9% 250 ML IV SCH (15:57)
[2017-03-23] MEDS: Potassium Chloride 20 MEQ Packet PO SCH (18:21)
[2017-03-23] MEDS ORDERED: Warfarin 2.5 MG Tab PO SCH (20:00)
[2017-03-23] MEDS: Mirtazapine 15 MG Tab PO SCH (20:39)
[2017-03-23] MEDS: atorvaSTATin 40 MG Tab PO SCH (20:40)
[2017-03-23] MEDS: Melatonin 3 MG Tab PO SCH (20:40)
[2017-03-24] MEDS: Omeprazole 20 MG Cap.CR PO SCH ×2 (05:53→07:45)
[2017-03-24] MEDS: Furosemide 40 MG Tab PO SCH ×2 (07:57→15:55)
[2017-03-24] MEDS: Fish Oil/Omega-3 Fatty Acids 1 Gm Cap PO SCH (07:57)
[2017-03-24] MEDS: Aspirin 81 MG Tab.EC PO SCH (07:57)
[2017-03-24] MEDS: Phytonadione 100 MCG Tab PO SCH (07:57)
[2017-03-24] MEDS: Brimonidine 0.2% Ophth Soln 5 ML Bottle EYEBOTH SCH ×2 (07:57→20:04)
[2017-03-24] MEDS: Ascorbic Acid 500 MG Tab PO SCH ×2 (07:57→20:04)
[2017-03-24] MEDS: predniSONE 10 MG Tab PO SCH (07:57)
[2017-03-24] MEDS: Venlafaxine 37.5 MG Tab PO SCH ×2 (07:57→20:05)
[2017-03-24] MEDS: traMADol 50 MG Tab PO SCH ×2 (07:57→20:04)
[2017-03-24] MEDS: Beta-Carotene (Vitamin A) w/Vitamin C & E plus Minerals Tab PO SCH (07:57)
[2017-03-24] MEDS: Carvedilol 6.25 MG Tab PO SCH ×2 (07:58→20:05)
[2017-03-24] MEDS: Potassium Chloride 20 MEQ Packet PO SCH ×3 (07:58→17:15)
[2017-03-24] MEDS: Oseltamivir 75 MG Cap PO SCH (07:58)
[2017-03-24 08:17] LABS: CHLORIDE,CL 103 mmol/L (98-107); SODIUM,NA 143 mmol/L (136-145)
--- NOTE | 2017-03-24 11:17 | PCM.PN ---
- General Info Date of Service: 03/24/17 Subjective Update: Patient states she feels about the same today as yesterday. She continues to cough and have some shortness of breath. She denies any fever or chills. She is eating well and denies any vomiting or diarrhea. - Review of Systems General: Reports: No Symptoms HEENT: Reports: No Symptoms Pulmonary: Reports: Shortness of Breath, Cough Cardiovascular: Reports: No Symptoms Gastrointestinal: Reports: No Symptoms Genitourinary: Reports: No Symptoms Musculoskeletal: Reports: No Symptoms Skin: Reports: No Symptoms - Patient Data Vitals - Most Recent: Last Vital Signs Temp 36.7 C 03/24/17 10:00 Pulse 68 03/24/17 10:00 Resp 20 03/24/17 10:00 BP 111/58 L 03/24/17 10:00 Pulse Ox 98 03/24/17 10:00 Weight - Most Recent: 76.839 kg I&O - Last 24 Hours: Intake & Output 03/23/17 03/24/17 03/24/17 22:59 06:59 14:59 Intake Total 360 120 120 Balance 360 120 120 Lab Results Last 24 Hours: Laboratory Results - last 24 hr 03/24/17 03/24/17 03/24/17 Range/Units 07:21 07:21 07:21 WBC 9.4 (4.0-10.0) x10^3/uL RBC 3.42 L (4.00-5.50) x10^6/uL Hgb 9.6 L (12.0-16.0) g/dL Hct 31.1 L (33.0-47.0) % MCV 90.9 (78.0-93.0) fL MCH 28.1 (26.0-32.0) pg MCHC 30.9 L (32.0-36.0) g/dL RDW Coeff of Danilo 17.5 H (10.0-15.0) % Plt Count 189 (130-400) x10^3/uL Neut % (Auto) 81.6 H (50.0-80.0) % Lymph % (Auto) 8.1 L (25.0-50.0) % Bennett % (Auto) 6.2 (2.0-11.0) % Eos % (Auto) 3.9 (0.0-4.0) % Baso % (Auto) 0.2 (0.2-1.2) % PT 61.4 H (9.8-11.8) SEC INR 6.0 H* (2.0-3.5) Sodium 143 (136-145) mmol/L Potassium 3.2 L (3.5-5.1) mmol/L Chloride 103 (98-107) mmol/L Carbon Dioxide 33 H (21-32) mmol/L BUN 14 (7-18) mg/dL Creatinine 0.7 (0.55-1.02) mg/dL Est Cr Clr Drug Dosing 45.07 mL/min Estimated GFR (MDRD) > 60 Glucose 103 (74-106) mg/dL Calcium 8.4 L (8.5-10.1) mg/dL Magnesium (1.8-2.4) mg/dL 03/24/17 Range/Units 07:21 WBC (4.0-10.0) x10^3/uL RBC (4.00-5.50) x10^6/uL Hgb (12.0-16.0) g/dL Hct (33.0-47.0) % MCV (78.0-93.0) fL MCH (26.0-32.0) pg MCHC (32.0-36.0) g/dL RDW Coeff of Danilo (10.0-15.0) % Plt Count (130-400) x10^3/uL Neut % (Auto) (50.0-80.0) % Lymph % (Auto) (25.0-50.0) % Bennett % (Auto) (2.0-11.0) % Eos % (Auto) (0.0-4.0) % Baso % (Auto) (0.2-1.2) % PT (9.8-11.8) SEC INR (2.0-3.5) Sodium (136-145) mmol/L Potassium (3.5-5.1) mmol/L Chloride (98-107) mmol/L Carbon Dioxide (21-32) mmol/L BUN (7-18) mg/dL Creatinine (0.55-1.02) mg/dL Est Cr Clr Drug Dosing mL/min Estimated GFR (MDRD) Glucose (74-106) mg/dL Calcium (8.5-10.1) mg/dL Magnesium 1.8 (1.8-2.4) mg/dL Gigi Results Last 24 Hours: Microbiology 03/22/17 13:54 MRSA Surveillance Culture - Final Nares, Left NO MRSA ISOLATED Med Orders - Current: Current Medications Acetaminophen (Tylenol) 650 mg PO Q4H PRN PRN Reason: Pain (Mild 1-3)/fever Acetaminophen (Tylenol Extra Strength) 500 mg PO Q4H PRN PRN Reason: Pain Albuterol (Proventil Neb Soln) 2.5 mg NEB Q6HRRT PRN PRN Reason: Shortness of Breath Albuterol/Ipratropium (Duoneb 3.0-0.5 Mg/3 Ml) 3 ml NEB Q4H PRN PRN Reason: dyspnea/wheezing Last Admin: 03/23/17 09:51 Dose: 3 ml Artificial Tears (Tears Naturale Free) 1 each EYEBOTH Q4H PRN PRN Reason: Dry Eyes Ascorbic Acid (Vitamin C) 500 mg PO BID [facility] Last Admin: 03/24/17 07:57 Dose: 500 mg Aspirin (Halfprin) 81 mg PO DAILY [facility] Last Admin: 03/24/17 07:57 Dose: 81 mg Atorvastatin Calcium (Lipitor) 40 mg PO BEDTIME [facility] Last Admin: 03/23/17 20:40 Dose: 40 mg Bisacodyl (Dulcolax) 10 mg RECTAL ASDIRECTED PRN PRN Reason: Constipation Brimonidine Tartrate (Alphagan 0.2% Ophth Soln) 0 ml EYEBOTH BID [facility] Last Admin: 03/24/17 07:57 Dose: 1 drop Carvedilol (Coreg) 6.25 mg PO BID [facility] Last Admin: 03/24/17 07:58 Dose: 6.25 mg Ceftriaxone Sodium (Rocephin) 1 gm IVPUSH Q24H [facility] Last Admin: 03/23/17 15:54 Dose: 1 gm Fish Oil (Fish Oil) 1 gm PO DAILY [facility] Last Admin: 03/24/17 07:57 Dose: 1 gm Furosemide (Lasix) 40 mg PO BIDDIURETIC [facility] Last Admin: 03/24/17 07:57 Dose: 40 mg Hydromorphone HCl (Dilaudid) 0.25 mg IVPUSH Q2H PRN PRN Reason: Pain (severe 7-10) Azithromycin 500 mg/ Sodium (Chloride) 250 mls @ 250 mls/hr IV Q24H [facility] Last Admin: 03/23/17 15:57 Dose: 250 mls/hr Melatonin (Melatonin) 3 mg PO BEDTIME [facility] Last Admin: 03/23/17 20:40 Dose: 3 mg Mirtazapine (Remeron) 15 mg PO BEDTIME [facility] Last Admin: 03/23/17 20:39 Dose: 15 mg Multivitamins/Minerals (Prosight) 1 tab PO DAILY [facility] Last Admin: 03/24/17 07:57 Dose: 1 tab Fluocinonide [Lidex 0.05% Solution] Own Supply 0 gm TOP BID PRN PRN Reason: scalp itching/rash Ketoconazole [ Nizoral 2% Shampoo] Own Supply 1 applic TOP ASDIRECTED [facility] Omeprazole (Omeprazole) 20 mg PO DAILY@0700 [facility] Last Admin: 03/24/17 07:45 Dose: Not Given Ondansetron HCl (Zofran) 4 mg IV Q6H PRN PRN Reason: Nausea/Vomiting Ondansetron HCl (Zofran Odt) 4 mg PO Q6H PRN PRN Reason: Nausea Oseltamivir Phosphate (Tamiflu) 75 mg PO DAILY [facility] Stop: 03/27/17 23:00 Last Admin: 03/24/17 07:58 Dose: 75 mg Phytonadione (Vitamin K) 100 mcg PO DAILY [facility] Last Admin: 03/24/17 07:57 Dose: 100 mcg Potassium Chloride (Klor-Con) 20 meq PO BIDMEALS [facility] Last Admin: 03/24/17 07:58 Dose: 20 meq Prednisone (Prednisone) 10 mg PO DAILY [facility] Last Admin: 03/24/17 07:57 Dose: 10 mg Senna/Docusate Sodium (Senna Plus) 1 tab PO BID [facility] Last Admin: 03/24/17 07:57 Dose: 1 tab Sodium Chloride (Saline Flush) 10 ml FLUSH ASDIRECTED PRN PRN Reason: Keep Vein Open Tramadol HCl (Ultram) 50 mg PO BID [facility] Last Admin: 03/24/17 07:57 Dose: 50 mg Venlafaxine HCl (Effexor) 37.5 mg PO BID [facility] Last Admin: 03/24/17 07:57 Dose: 37.5 mg Discontinued Medications Bisacodyl (Dulcolax) 10 mg RECTAL Q3D PRN PRN Reason: Constipation Enoxaparin Sodium (Lovenox) 40 mg SUBCUT DAILY [facility] Potassium Chloride (Klor-Con) 20 meq PO DAILY [facility] Last Admin: 03/23/17 09:42 Dose: Not Given Tramadol HCl (Ultram) 50 mg PO TID [facility] Last Admin: 03/23/17 09:31 Dose: 50 mg Venlafaxine HCl (Effexor) 75 mg PO BID [facility] Last Admin: 03/23/17 09:31 Dose: 75 mg Warfarin Sodium (Coumadin) 5 mg PO [email or web address] [facility] Last Admin: 03/22/17 19:49 Dose: 5 mg Warfarin Sodium (Coumadin) 7.5 mg PO [email or web address] [facility] - Exam General: Alert, Cooperative, No Acute Distress HEENT: Mucous Membr. Moist/[place] Neck: Supple, Trachea Midline, No Thyromegaly. No: Lymphadenopathy Lungs: Clear to Auscultation, Normal Respiratory Effort Cardiovascular: Regular Rate, Irregular Rhythm GI/Abdominal Exam: Normal Bowel Sounds, Soft Extremities: Non-Tender, No Pedal Edema, Normal Capillary Refill Skin: Warm, Dry, Intact - Problem List & Annotations (1) Pneumonia SNOMED Code(s): 523052011 Code(s): J18.9 - PNEUMONIA, UNSPECIFIED ORGANISM Status: Acute Current Visit: Yes Qualifiers: Pneumonia type: due to unspecified organism Laterality: unspecified laterality Lung location: unspecified part of lung Qualified Code(s): J18.9 - Pneumonia, unspecified organism Annotation/Comment:: - Patient diagnosed with pneumonia based on symptoms and lab results. - Not significantly improved clinically but certainly not worsening. Labs improving. - At this point, would continue the same. If she is still not feeling much improved in the am, then we will consider adjusting antibiotic regimen. - Otherwise, continue ceftriaxone and azithromycin. - Continue higher prednisone dose and neb treatments. (2) Influenza SNOMED Code(s): 4684446 Code(s): J11.1 - FLU DUE TO UNIDENTIFIED INFLUENZA VIRUS W OTH RESP MANIFEST Status: Acute Current Visit: Yes Annotation/Comment:: - Swab negative but the clinical history was quite convincing for influenza. - Therefore, she is receiving treatment with tamiflu. (3) Acute respiratory failure with hypoxia SNOMED Code(s): 65160487 Code(s): J96.01 - ACUTE RESPIRATORY FAILURE WITH HYPOXIA Status: Acute Current Visit: Yes Annotation/Comment:: - Oxygen requirements are stable. Will continue to wean as able. (4) Supratherapeutic INR SNOMED Code(s): 137101894 Code(s): R79.1 - ABNORMAL COAGULATION PROFILE Status: Acute Current Visit : Yes Annotation/Comment:: - INR up to 6 today. - Warfarin will be held. No indication for vitamin K at this time. - Monitor daily. (5) Atrial fibrillation SNOMED Code(s): 45655606 Code(s): I48.91 - UNSPECIFIED ATRIAL FIBRILLATION Status: Chronic Current Visit: No Annotation/Comment:: - Rates controlled. Supratherapeutic INR as above. - Continue home medications. (6) CHF (congestive heart failure) SNOMED Code(s): 83339077 Code(s): I50.9 - HEART FAILURE, UNSPECIFIED Status: Chronic Priority: Medium Current Visit: No Qualifiers: Congestive heart failure type: unspecified congestive heart failure type Congestive heart failure chronicity: acute on chronic Qualified Code(s): I50.9 - Heart failure, unspecified Annotation/Comment:: - No evidence of CHF exacerbation. - Will continue to monitor. - Home medications continued. - Problem List Review Problem List Initiated/Reviewed/Updated: Yes - Assessment Assessment:: 89 yo female admitted with hypoxic respiratory failure secondary to pneumonia and presumed influenza. She feels about the same but her labs are improving. - Plan Plan:: She will remain on ceftriaxone, azithromycin, and tamiflu. Can consider transition to PO antibiotics tomorrow if she is doing better. Continue to wean oxygen as able. She will likely remain on acute cares for another 48 hours. She does not require VTE prophylaxis as her INR remains supratherapeutic. She is DNR.
[2017-03-24] MEDS: cefTRIAXone 1 GM Vial IVPUSH SCH (15:55)
[2017-03-24] MEDS: Azithromycin 500 MG in Sodium Chloride 0.9% 250 ML IV SCH (15:55)
[2017-03-24] MEDS: Acetaminophen 500 MG Tab PO PRN (16:48)
[2017-03-24] MEDS: Melatonin 3 MG Tab PO SCH (20:04)
[2017-03-24] MEDS: atorvaSTATin 40 MG Tab PO SCH (20:04)
[2017-03-24] MEDS: Mirtazapine 15 MG Tab PO SCH (20:04)
[2017-03-25] MEDS: Omeprazole 20 MG Cap.CR PO SCH (06:22)
[2017-03-25] MEDS: Potassium Chloride 20 MEQ Packet PO SCH ×2 (07:17→17:03)
[2017-03-25] MEDS: Ascorbic Acid 500 MG Tab PO SCH ×2 (07:17→20:28)
[2017-03-25] MEDS: Brimonidine 0.2% Ophth Soln 5 ML Bottle EYEBOTH SCH ×2 (07:17→20:30)
[2017-03-25] MEDS: Venlafaxine 37.5 MG Tab PO SCH ×2 (07:18→20:28)
[2017-03-25] MEDS: Beta-Carotene (Vitamin A) w/Vitamin C & E plus Minerals Tab PO SCH (07:18)
[2017-03-25] MEDS: Phytonadione 100 MCG Tab PO SCH (07:18)
[2017-03-25] MEDS: Fish Oil/Omega-3 Fatty Acids 1 Gm Cap PO SCH (07:18)
[2017-03-25] MEDS: Aspirin 81 MG Tab.EC PO SCH (07:18)
[2017-03-25] MEDS: Carvedilol 6.25 MG Tab PO SCH ×2 (07:18→20:28)
[2017-03-25] MEDS: traMADol 50 MG Tab PO SCH ×2 (07:18→20:28)
[2017-03-25] MEDS: Oseltamivir 75 MG Cap PO SCH (07:18)
[2017-03-25] MEDS: Furosemide 40 MG Tab PO SCH ×2 (07:18→17:03)
[2017-03-25] MEDS: predniSONE 10 MG Tab PO SCH (07:18)
[2017-03-25 07:57] LABS: CHLORIDE,CL 105 mmol/L (98-107); SODIUM,NA 144 mmol/L (136-145)
--- NOTE | 2017-03-25 09:31 | PCM.PN ---
- General Info Date of Service: 03/25/17 Subjective Update: Patient states she is feeling much better today. Shortness of breath and cough are improved. No fever, chills, or chest pain. Is happy she is feeling better. - Review of Systems General: Reports: No Symptoms HEENT: Reports: No Symptoms Pulmonary: Reports: No Symptoms Cardiovascular: Reports: No Symptoms Gastrointestinal: Reports: No Symptoms Genitourinary: Reports: No Symptoms Musculoskeletal: Reports: No Symptoms Skin: Reports: No Symptoms - Patient Data Vitals - Most Recent: Last Vital Signs Temp 36.4 C 03/25/17 05:33 Pulse 67 03/25/17 05:33 Resp 18 03/25/17 05:33 BP 141/72 H 03/25/17 05:33 Pulse Ox 93 L 03/25/17 07:04 Weight - Most Recent: 76.839 kg I&O - Last 24 Hours: Intake & Output 03/24/17 03/25/17 03/25/17 22:59 06:59 14:59 Intake Total 730 120 10 Balance 730 120 10 Lab Results Last 24 Hours: Laboratory Results - last 24 hr 03/25/17 03/25/17 03/25/17 Range/Units 07:20 07:20 07:20 WBC 7.8 (4.0-10.0) x10^3/uL RBC 3.43 L (4.00-5.50) x10^6/uL Hgb 9.6 L (12.0-16.0) g/dL Hct 31.2 L (33.0-47.0) % MCV 91.0 (78.0-93.0) fL MCH 28.0 (26.0-32.0) pg MCHC 30.8 L (32.0-36.0) g/dL RDW Coeff of Danilo 17.4 H (10.0-15.0) % Plt Count 176 (130-400) x10^3/uL Neut % (Auto) 76.8 (50.0-80.0) % Lymph % (Auto) 11.7 L (25.0-50.0) % Casey % (Auto) 6.2 (2.0-11.0) % Eos % (Auto) 5.0 H (0.0-4.0) % Baso % (Auto) 0.3 (0.2-1.2) % PT 47.3 H (9.8-11.8) SEC INR 4.6 H (2.0-3.5) Sodium 144 (136-145) mmol/L Potassium 3.3 L (3.5-5.1) mmol/L Chloride 105 (98-107) mmol/L Carbon Dioxide 32 (21-32) mmol/L BUN 13 (7-18) mg/dL Creatinine 0.6 (0.55-1.02) mg/dL Est Cr Clr Drug Dosing 52.58 mL/min Estimated GFR (MDRD) > 60 Glucose 102 (74-106) mg/dL Calcium 8.3 L (8.5-10.1) mg/dL C-Reactive Protein 12.9 H (<=0.9) mg/dL Med Orders - Current: Current Medications Acetaminophen (Tylenol) 650 mg PO Q4H PRN PRN Reason: Pain (Mild 1-3)/fever Acetaminophen (Tylenol Extra Strength) 500 mg PO Q4H PRN PRN Reason: Pain Last Admin: 03/24/17 16:48 Dose: 500 mg Albuterol (Proventil Neb Soln) 2.5 mg NEB Q6HRRT PRN PRN Reason: Shortness of Breath Albuterol/Ipratropium (Duoneb 3.0-0.5 Mg/3 Ml) 3 ml NEB Q4H PRN PRN Reason: dyspnea/wheezing Last Admin: 03/23/17 09:51 Dose: 3 ml Artificial Tears (Tears Naturale Free) 1 each EYEBOTH Q4H PRN PRN Reason: Dry Eyes Ascorbic Acid (Vitamin C) 500 mg PO BID [facility] Last Admin: 03/25/17 07:17 Dose: 500 mg Aspirin (Halfprin) 81 mg PO DAILY [facility] Last Admin: 03/25/17 07:18 Dose: 81 mg Atorvastatin Calcium (Lipitor) 40 mg PO BEDTIME [facility] Last Admin: 03/24/17 20:04 Dose: 40 mg Bisacodyl (Dulcolax) 10 mg RECTAL ASDIRECTED PRN PRN Reason: Constipation Brimonidine Tartrate (Alphagan 0.2% Ophth Soln) 0 ml EYEBOTH BID [facility] Last Admin: 03/25/17 07:17 Dose: 1 drop Carvedilol (Coreg) 6.25 mg PO BID [facility] Last Admin: 03/25/17 07:18 Dose: 6.25 mg Fish Oil (Fish Oil) 1 gm PO DAILY [facility] Last Admin: 03/25/17 07:18 Dose: 1 gm Furosemide (Lasix) 40 mg PO BIDDIURETIC [facility] Last Admin: 03/25/17 07:18 Dose: 40 mg Hydromorphone HCl (Dilaudid) 0.25 mg IVPUSH Q2H PRN PRN Reason: Pain (severe 7-10) Last Admin: 03/24/17 21:31 Dose: 0.25 mg Melatonin (Melatonin) 3 mg PO BEDTIME [facility] Last Admin: 03/24/17 20:04 Dose: 3 mg Mirtazapine (Remeron) 15 mg PO BEDTIME [facility] Last Admin: 03/24/17 20:04 Dose: 15 mg Multivitamins/Minerals (Prosight) 1 tab PO DAILY [facility] Last Admin: 03/25/17 07:18 Dose: 1 tab Fluocinonide [Lidex 0.05% Solution] Own Supply 0 gm TOP BID PRN PRN Reason: scalp itching/rash Ketoconazole [ Nizoral 2% Shampoo] Own Supply 1 applic TOP ASDIRECTED [facility] Omeprazole (Omeprazole) 20 mg PO DAILY@0700 [facility] Last Admin: 03/25/17 06:22 Dose: 20 mg Ondansetron HCl (Zofran) 4 mg IV Q6H PRN PRN Reason: Nausea/Vomiting Ondansetron HCl (Zofran Odt) 4 mg PO Q6H PRN PRN Reason: Nausea Oseltamivir Phosphate (Tamiflu) 75 mg PO DAILY [facility] Stop: 03/27/17 23:00 Last Admin: 03/25/17 07:18 Dose: 75 mg Phytonadione (Vitamin K) 100 mcg PO DAILY [facility] Last Admin: 03/25/17 07:18 Dose: 100 mcg Potassium Chloride (Klor-Con) 20 meq PO BIDMEALS [facility] Last Admin: 03/25/17 07:17 Dose: 20 meq Prednisone (Prednisone) 10 mg PO DAILY [facility] Last Admin: 03/25/17 07:18 Dose: 10 mg Senna/Docusate Sodium (Senna Plus) 1 tab PO BID [facility] Last Admin: 03/25/17 07:18 Dose: 1 tab Sodium Chloride (Saline Flush) 10 ml FLUSH ASDIRECTED PRN PRN Reason: Keep Vein Open Tramadol HCl (Ultram) 50 mg PO BID [facility] Last Admin: 03/25/17 07:18 Dose: 50 mg Venlafaxine HCl (Effexor) 37.5 mg PO BID [facility] Last Admin: 03/25/17 07:18 Dose: 37.5 mg Discontinued Medications Bisacodyl (Dulcolax) 10 mg RECTAL Q3D PRN PRN Reason: Constipation Ceftriaxone Sodium (Rocephin) 1 gm IVPUSH Q24H [facility] Last Admin: 03/24/17 15:55 Dose: 1 gm Enoxaparin Sodium (Lovenox) 40 mg SUBCUT DAILY [facility] Azithromycin 500 mg/ Sodium (Chloride) 250 mls @ 250 mls/hr IV Q24H [facility] Last Admin: 03/24/17 15:55 Dose: 250 mls/hr Potassium Chloride (Klor-Con) 20 meq PO DAILY [facility] Last Admin: 03/23/17 09:42 Dose: Not Given Tramadol HCl (Ultram) 50 mg PO TID [facility] Last Admin: 03/23/17 09:31 Dose: 50 mg Venlafaxine HCl (Effexor) 75 mg PO BID [facility] Last Admin: 03/23/17 09:31 Dose: 75 mg Warfarin Sodium (Coumadin) 5 mg PO [email or web address] [facility] Last Admin: 03/22/17 19:49 Dose: 5 mg Warfarin Sodium (Coumadin) 7.5 mg PO [email or web address] [facility] - Exam General: Alert, Cooperative, No Acute Distress HEENT: Mucous Membr. Moist/[place] Neck: Supple, No Thyromegaly. No: Lymphadenopathy Lungs: Clear to Auscultation, Normal Respiratory Effort Cardiovascular: Regular Rate, Regular Rhythm, No Murmurs GI/Abdominal Exam: Normal Bowel Sounds, Soft, Non-Tender, No Organomegaly, No Distention, No Mass Extremities: Normal Inspection, Non-Tender, No Pedal Edema, Normal Capillary Refill Peripheral Pulses: 2+: Radial (L), Radial (R), Posterior Tibial (L), Posterior Tibial (R) Skin: Warm, Dry, Intact - Problem List & Annotations (1) Pneumonia SNOMED Code(s): 130934440 Code(s): J18.9 - PNEUMONIA, UNSPECIFIED ORGANISM Status: Acute Current Visit: Yes Qualifiers: Pneumonia type: due to unspecified organism Laterality: unspecified laterality Lung location: unspecified part of lung Qualified Code(s): J18.9 - Pneumonia, unspecified organism Annotation/Comment:: - Patient diagnosed with pneumonia based on symptoms and lab results. - She is improved today symptomatically; labs continue to improve. - Will transition to PO antibiotics today of cefdinir and azithromycin. - Continue higher prednisone dose and neb treatments. (2) Influenza SNOMED Code(s): 6289962 Code(s): J11.1 - FLU DUE TO UNIDENTIFIED INFLUENZA VIRUS W OTH RESP MANIFEST Status: Acute Current Visit: Yes Annotation/Comment:: - Swab negative but the clinical history was quite convincing for influenza. - She is on prophylaxis for influenza given exposure. Given improvement and negative influenza swab, she will not be on treatment doses. (3) Acute respiratory failure with hypoxia SNOMED Code(s): 95134296 Code(s): J96.01 - ACUTE RESPIRATORY FAILURE WITH HYPOXIA Status: Acute Current Visit: Yes Annotation/Comment:: - Oxygen requirements are stable. Will continue to wean as able. (4) Supratherapeutic INR SNOMED Code(s): 188219578 Code(s): R79.1 - ABNORMAL COAGULATION PROFILE Status: Acute Current Visit : Yes Annotation/Comment:: - INR down to 4.6 today. - Warfarin will continue to be held. - If INR is down again tomorrow morning, will restart warfarin. (5) Atrial fibrillation SNOMED Code(s): 73030096 Code(s): I48.91 - UNSPECIFIED ATRIAL FIBRILLATION Status: Chronic Current Visit: No Annotation/Comment:: - Rates controlled. Supratherapeutic INR as above. - Continue home medications. (6) CHF (congestive heart failure) SNOMED Code(s): 59511638 Code(s): I50.9 - HEART FAILURE, UNSPECIFIED Status: Chronic Priority: Medium Current Visit: No Qualifiers: Congestive heart failure type: unspecified congestive heart failure type Congestive heart failure chronicity: acute on chronic Qualified Code(s): I50.9 - Heart failure, unspecified Annotation/Comment:: - No evidence of CHF exacerbation. - Will continue to monitor. - Home medications continued. - Problem List Review Problem List Initiated/Reviewed/Updated: Yes - Assessment Assessment:: 89 yo female admitted with hypoxic respiratory failure secondary to pneumonia. Much improved this am. - Plan Plan:: See details under problems above. Will transition to PO antibiotics today. Continue to wean oxygen as able. Anticipate she will be stable for discharge back to the [facility] tomorrow. She does not require VTE prophylaxis as her INR remains supratherapeutic. She is DNR.
[2017-03-25] MEDS: Acetaminophen 500 MG Tab PO PRN (13:37)
[2017-03-25] MEDS ORDERED: Azithromycin 250 MG Tab PO SCH (14:00)
[2017-03-25] MEDS ORDERED: cefTRIAXone 1 GM Vial IVPUSH SCH (16:00)
[2017-03-25] MEDS: Acetaminophen 325 MG Tab PO PRN (17:31)
[2017-03-25] MEDS: Melatonin 3 MG Tab PO SCH (20:27)
[2017-03-25] MEDS: Mirtazapine 15 MG Tab PO SCH (20:28)
[2017-03-25] MEDS: atorvaSTATin 40 MG Tab PO SCH (20:28)
[2017-03-26 05:39] VITALS: BP 142/59
[2017-03-26] MEDS: Omeprazole 20 MG Cap.CR PO SCH (06:20)
[2017-03-26] MEDS: Acetaminophen 325 MG Tab PO PRN (06:20)
[2017-03-26 07:07] LABS: CHLORIDE,CL 104 mmol/L (98-107); SODIUM,NA 144 mmol/L (136-145)
[2017-03-26] MEDS: predniSONE 10 MG Tab PO SCH (07:21)
[2017-03-26] MEDS: Beta-Carotene (Vitamin A) w/Vitamin C & E plus Minerals Tab PO SCH (07:21)
[2017-03-26] MEDS: Brimonidine 0.2% Ophth Soln 5 ML Bottle EYEBOTH SCH (07:21)
[2017-03-26] MEDS: traMADol 50 MG Tab PO SCH (07:21)
[2017-03-26] MEDS: Carvedilol 6.25 MG Tab PO SCH (07:21)
[2017-03-26] MEDS: Phytonadione 100 MCG Tab PO SCH (07:21)
[2017-03-26] MEDS: Furosemide 40 MG Tab PO SCH (07:21)
[2017-03-26] MEDS: Potassium Chloride 20 MEQ Packet PO SCH (07:21)
[2017-03-26] MEDS: Venlafaxine 37.5 MG Tab PO SCH (07:21)
[2017-03-26] MEDS: Fish Oil/Omega-3 Fatty Acids 1 Gm Cap PO SCH (07:21)
[2017-03-26] MEDS: Aspirin 81 MG Tab.EC PO SCH (07:21)
[2017-03-26] MEDS: Ascorbic Acid 500 MG Tab PO SCH (07:21)
[2017-03-26] MEDS ORDERED: cefTRIAXone 1 GM Vial IVPUSH SCH (08:29)
[2017-03-26] MEDS: Oseltamivir 75 MG Cap PO SCH (08:44)
--- NOTE | 2017-03-27 05:09 | DISCH ---
PRIMARY DISCHARGE DIAGNOSES: 1. Acute hypoxic respiratory failure secondary to pneumonia and likely influenza. 2. Pneumonia due to unspecified organism, unspecified parts of the lung. 3. Significant influenza exposure but negative influenza testing. She is being treated with Tamiflu. 4. Supratherapeutic INR. INR improved to 3 with holding Coumadin. No bleeding problems. 5. History of stroke with underlying atrial fibrillation. 6. Atrial fibrillation, rate controlled. 7. Chronic diastolic heart failure, stable without exacerbation. 8. Essential hypertension, moderate depression, cognitive dysfunction, inflammatory arthritis, history of right middle cerebral artery stroke. REASON FOR ADMISSION: On the date of admission, this 89-year-old female was having fever, cough, and shortness of breath. She was transferred over to the clinic and was admitted for acute cares. She remained afebrile during her acute hospital stay. She was started on IV Rocephin and oral Zithromax and was tolerating that. She does carry an allergy to cefuroxime, but tolerated the Rocephin okay and did complete all 5 doses while here. She has 1 dose this afternoon and Zithromax left. She was also increased from 5 to 10 mg daily of prednisone given her chronic steroid dependence. She received nebulizers but was not wheezing and overall she felt her breathing was better and her cough were better on discharge. The only concern she has is that she just felt exhausted. She did not remember if she necessarily slept poorly. She did not think she was having any bowel movements during her stay, and I do not see none recorded. She was eating up to 90% of some meals, but mostly she was eating between 10% and 50%. She was denying any pain currently, but at times she was having pain in the left arm and left leg, and in fact, the left knee was wrapped and she was not sure why she had no pain when I examined her. PHYSICAL EXAMINATION: VITAL SIGNS: Discharge vitals included temperature 98, pulse 88, blood pressure 142/59, respiratory rate 18, O2 of 96 on 1.5 L. GENERAL: She is in no acute distress. HEART: Irregularly irregular. LUNGS: Lungs sounds were clear to auscultation bilaterally without crackles or wheezes. ABDOMEN: Positive bowel sounds. Soft and nontender. EXTREMITIES: Slightly edematous, but warm and dry. MENTAL STATUS: She is alert. She seems to recognize me. DISCHARGE PLANS AND INSTRUCTIONS: She will be seen on [facility] rounds in April. She will take Zithromax this afternoon and her last dose of Tamiflu tomorrow morning. She will be on prednisone 10 mg daily for another 5 days, then resume 5 mg daily. INR check will be on 03/30 and she will resume her same warfarin dosing as prior to admission with 7.5 mg on Sunday, Sunday, Sunday and 5 mg the rest of the week. Aspirin was stopped due to her being on Coumadin. Potassium was increased to twice daily. She should have a followup BMP in 1 week's time. Hemoglobin was stable at 10.6 on discharge. White count was normalized at 8.1, it was elevated on admission. Potassium 3.6 on discharge. Creatinine 0.7. Rhys Ring will be transitioning back to [facility]. Greater than 30 minutes spent on the discharge process. MKA: 03/26/2017 08:48:01 MODL: 03/27/2017 05:04:25 /[id number]
== END 2017-03-26 09:45 | DRG 193 ==
LOC: VM.MS 13:38
PROVIDERS: ADMIT Family Medicine; ATTEND Family Medicine
DX: J11.00 Influenza due to unidentified influenza virus with unspecified type of pneumonia (principal); J96.01 Acute respiratory failure with hypoxia; I50.32 Chronic diastolic (congestive) heart failure; I48.91 Unspecified atrial fibrillation; I11.0 Hypertensive heart disease with heart failure; E78.00 Pure hypercholesterolemia, unspecified; M19.90 Unspecified osteoarthritis, unspecified site; Z86.73 Personal history of transient ischemic attack (TIA), and cerebral infarction without residual deficits; F03.90 Unspecified dementia, unspecified severity, without behavioral disturbance, psychotic disturbance, mood disturbance, and anxiety; Z79.01 Long term (current) use of anticoagulants; Z79.82 Long term (current) use of aspirin; Z79.899 Other long term (current) drug therapy; Z88.1 Allergy status to other antibiotic agents; Z88.5 Allergy status to narcotic agent; Z91.013 Allergy to seafood; Z85.3 Personal history of malignant neoplasm of breast; F32.9 Major depressive disorder, single episode, unspecified; G31.84 Mild cognitive impairment of uncertain or unknown etiology; K21.9 Gastro-esophageal reflux disease without esophagitis; M81.0 Age-related osteoporosis without current pathological fracture; R79.1 Abnormal coagulation profile
CPT/HCPCS: 36415; 80048; 83735; 85025; 85610; 86140; 94640; 94760; A9270-GY; J0456; J0696; J1170; J7050

== ENCOUNTER 2017-04-11 20:58 | Emergency (ER) | payer MEDICARE ==
[2017-04-11 21:13] VITALS: BP 135/75
[2017-04-11 22:04] LABS: CHLORIDE,CL 104 mmol/L (98-107); SODIUM,NA 142 mmol/L (136-145)
--- NOTE | 2017-04-11 22:52 | EDM.PDOC ---
ED HPI GENERAL MEDICAL PROBLEM - General Chief Complaint: General Stated Complaint: abdominal pain? Time Seen by Provider: 04/11/17 21:05 Source of Information: Reports: Patient History Limitations: Reports: No Limitations - History of Present Illness INITIAL COMMENTS - FREE TEXT/NARRATIVE: Pt. is a resident at [facility]. Pt. complained of severe abdominal pain shortly before coming to the ER. Staff told EMS that she was "screaming in pain". On arrival of EMS, she was no longer screaming in pain, but was resistive to care and assessment by translator. Staff states that she has not recently fallen. Daughter states that pt has severe dementia and states that she has been complaining of "leg pain" since being discharged from the hospital recently, but did not complain of this to nursing staff or translator tonight. Onset: Today Onset Date: 04/11/17 Onset Time: 20:45 Duration: Resolved Prior to Arrival Location: Reports: Abdomen (resolved on arrival) Quality: Reports: Other (unknown) - Related Data Allergies Allergy/AdvReac Type Severity Reaction Status Date / Time cefuroxime axetil Allergy Cannot Verified 04/11/17 21:55 [From Ceftin] Remember ciprofloxacin [From Cipro] Allergy Cannot Verified 04/11/17 21:55 Remember codeine Allergy Cannot Verified 04/11/17 21:55 Remember shellfish derived Allergy Cannot Verified 04/11/17 21:55 Remember hayfever Allergy Cannot Uncoded 04/11/17 21:55 Remember Home Meds: Home Meds Albuterol [Proair HFA] 1 puff IH Q4H PRN 07/21/14 [History] Carvedilol [Coreg] 6.25 mg PO BIDMEALS 07/21/14 [History] Ketoconazole [Nizoral 2% Shampoo] 1 applic TOP ASDIRECTED 07/06/15 [History] Melatonin 3 mg PO BEDTIME 07/06/15 [History] atorvaSTATin [Lipitor] 40 mg PO BEDTIME 07/06/15 [History] Venlafaxine [Effexor] 37.5 mg PO BID 07/07/15 [History] Phytonadione [Vitamin K] 100 mcg PO DAILY 02/13/16 [History] traMADol [Ultram] 50 mg PO BID 02/13/16 [History] Brimonidine Tartrate [Brimonidine Tartrate 0.2% Oph Soln] 1 drop EYEBOTH BID 02/14/16 [History] Mirtazapine [Remeron] 15 mg PO BEDTIME 02/14/16 [History] Ondansetron [Zofran ODT] 4 mg PO Q6H PRN 02/14/16 [History] Warfarin [Coumadin] 5 mg PO DAILY 02/14/16 [History] Acetaminophen [Tylenol Extra Strength] 500 mg PO Q4H PRN 03/22/17 [History] Bisacodyl 10 mg RECTAL ASDIRECTED PRN 03/22/17 [History] Fluocinonide 1 applic TOP BID PRN 03/22/17 [History] Furosemide 40 mg PO BID 03/22/17 [History] Omeprazole 20 mg PO DAILY 03/22/17 [History] Potassium Chloride [Klor-Con] 20 meq PO BIDMEALS #60 packet 03/26/17 [Rx] predniSONE [Prednisone] 5 mg PO DAILY #30 03/26/17 [Rx] Bisacodyl [Dulcolax] 5 mg PO ASDIRECTED PRN 04/11/17 [History] Dextran 70/Hypromellose [Artificial Tears] 1 each OP Q4H PRN 04/11/17 [History] Multivitamin [Daily Multiple Vitamin] 1 tab PO DAILY 04/11/17 [History] Sennosides/Docusate Sodium [Senna Plus Tablet] 1 tab PO BID 04/11/17 [History] Past Medical History HEENT History: Reports: Cataract, Glaucoma Cardiovascular History: Reports: Afib, Heart Failure, High Cholesterol, Hypertension Gastrointestinal History: Reports: Colon Polyp, Diverticulosis, GERD Genitourinary History: Reports: Urinary Incontinence 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: Musculoskeletal History: Reports: Arthritis, Osteoarthritis, Osteoporosis Neurological History: Reports: CVA, TIA Psychiatric History: Reports: Dementia, Depression Oncologic (Cancer) History: Reports: Breast Dermatologic History: Reports: Psoriasis - Past Surgical History HEENT Surgical History: Reports: Adenoidectomy, Cataract Surgery, Tonsillectomy Female Surgical History: Reports: Breast Biopsy, Hysterectomy Neurological Surgical History: Reports: Other (See Below) Social & Family History - Tobacco Use Smoking Status *Q: Former Smoker Used Tobacco, but Quit: Yes Month Tobacco Last Used: 40 years ago - Alcohol Use Days Per Week of Alcohol Use: 0 - Recreational Drug Use Recreational Drug Use: No ED ROS GENERAL - Review of Systems Review Of Systems: Unable To Obtain GI/Abdominal: Reports: Abdominal Pain ED EXAM, GENERAL - Physical Exam Exam: See Below Exam Limited By: No Limitations General Appearance: Alert, No Apparent Distress Throat/Mouth: Normal Inspection, Normal Lips, Normal Teeth, Normal Gums, Normal Oropharynx, Normal Voice, No Airway Compromise Head: Atraumatic, Normocephalic Neck: Normal Inspection, Supple, Non-Tender, Full Range of Motion Respiratory/Chest: No Respiratory Distress, Lungs Clear, Normal Breath Sounds, No Accessory Muscle Use, Chest Non-Tender Cardiovascular: Normal Peripheral Pulses, Regular Rate, Rhythm, No Edema, No Gallop, No JVD, No Murmur, No Rub Peripheral Pulses: 2+: Radial (L), Radial (R) GI/Abdominal: Normal Bowel Sounds, Soft, Non-Tender, No Organomegaly, No Distention, No Mass, Pelvis Stable. 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 No obvious issues with increased discomfort on manipulation of the hip) Neurological: Alert, Oriented, CN II-XII Intact, Normal Cognition, Normal Gait, Normal Reflexes, No Motor/Sensory Deficits Psychiatric: Other (resistive to care, according to EMS) Skin Exam: Warm, Dry, Intact, No Rash, Pallor Lymphatic: No Adenopathy Course - Vital Signs Last Recorded V/S: Last Vital Signs Temp 35.9 C 04/11/17 21:05 Pulse 88 04/11/17 21:05 Resp 18 04/11/17 21:05 BP 135/75 04/11/17 21:05 Pulse Ox 94 L 04/11/17 21:05 - Orders/Labs/Meds Orders: Active Orders 24 hr Category Date Time Status Abdomen 2V AP Flat Upright [CR] Stat Exams 04/11/17 21:14 Ordered Labs: Laboratory Tests 04/11/17 04/11/17 Range/Units 21:35 21:35 WBC 6.4 (4.0-10.0) x10^3/uL RBC 3.82 L (4.00-5.50) x10^6/uL Hgb 10.7 L (12.0-16.0) g/dL Hct 35.2 (33.0-47.0) % MCV 92.1 (78.0-93.0) fL MCH 28.0 (26.0-32.0) pg MCHC 30.4 L (32.0-36.0) g/dL RDW Coeff of Danilo 18.9 H (10.0-15.0) % Plt Count 243 (130-400) x10^3/uL Neut % (Auto) 63.2 (50.0-80.0) % Lymph % (Auto) 17.6 L (25.0-50.0) % Amelia % (Auto) 11.2 H (2.0-11.0) % Eos % (Auto) 7.5 H (0.0-4.0) % Baso % (Auto) 0.5 (0.2-1.2) % Sodium 142 (136-145) mmol/L Potassium 4.2 (3.5-5.1) mmol/L Chloride 104 (98-107) mmol/L Carbon Dioxide 31 (21-32) mmol/L BUN 19 H (7-18) mg/dL Creatinine 0.9 (0.55-1.02) mg/dL Est Cr Clr Drug Dosing TNP Estimated GFR (MDRD) 59 Glucose 93 (74-106) mg/dL Calcium 8.6 (8.5-10.1) mg/dL Corrected Calcium 9.88 (8.5-10.1) mg/dL Total Bilirubin 0.5 (0.2-1.0) mg/dL AST 22 (15-37) U/L ALT 21 (14-59) U/L Alkaline Phosphatase 90 (46-116) U/L Total Protein 7.0 (6.4-8.2) g/dL Albumin 2.4 L (3.4-5.0) g/dL Globulin 4.6 Albumin/Globulin Ratio 0.52 Lipase 113 (73-393) U/L - Radiology Interpretation Free Text/Narrative:: abdominal films show large stool throughout colon. 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 Departure - Departure Time of Disposition: 22:57 Disposition: Home, Self-Care 01 Condition: Fair Clinical Impression: Constipation - Discharge Information Instructions: Constipation, Adult Referrals: Maura Garcia DO [Primary Care Provider] - Forms: ED Department Discharge Additional Instructions: Start Miralax 17mg once daily. Increase fluids. Increase bisacodyl 5mg orally twice daily. - My Orders Last 24 Hours: My Active Orders 04/11/17 21:14 Abdomen 2V AP Flat Upright [CR] Stat - Assessment/Plan Last 24 Hours: My Active Orders 04/11/17 21:14 Abdomen 2V AP Flat Upright [CR] Stat Assessment:: Constipation non-union L hip Plan: I did contact Dr. Chu at [facility]. He felt that, since the pt. was not having discomfort and was not ambulatory, no intervention was needed for the hip. Will increase bisacodyl to 5mg twice daily orally to help with colonic transit. Also advised starting the pt. on Miralax.
== END 2017-04-11 22:58 | disposition home or self-care (01) ==
LOC: VM.ED 20:58
DX: K59.00 Constipation, unspecified (principal); I11.0 Hypertensive heart disease with heart failure; I50.9 Heart failure, unspecified; Z87.891 Personal history of nicotine dependence; E78.00 Pure hypercholesterolemia, unspecified; Z88.5 Allergy status to narcotic agent; Z88.8 Allergy status to other drugs, medicaments and biological substances; Z91.013 Allergy to seafood; Z79.899 Other long term (current) drug therapy
CPT/HCPCS: 36415; 74019; 80053; 83690; 85025; 99283-GF; 99284